=== PATIENT | male | born 1985 | race African-American/Black ===

== ENCOUNTER 2016-08-09 09:41 | Day surgery (SDC) | payer BC ==
[~2016-08-09] VITALS: Ht 190.5 cm; Wt 127.0 kg
[2016-08-09 10:05] VITALS: BP 149/93
[2016-08-09] MEDS ORDERED: PERCOCET 5/31 TABLET PO (14:54)
[2016-08-09] MEDS ORDERED: COLACE100 MG PO (14:54)
[2016-08-09 16:15] VITALS: BP 170/86
== END 2016-08-09 17:35 | disposition home or self-care (01) ==
LOC: SDC 09:41
PROC: 06BY3ZC Excision of Hemorrhoidal Plexus, Percutaneous Approach (ICD-10-PCS; principal; 2016-08-09)
DX: K64.8 Other hemorrhoids (principal); K64.4 Residual hemorrhoidal skin tags
CPT/HCPCS: 88304; J0330; J0690; J1100; J1170; J1885; J2405; J3010